=== PATIENT | male | born 1950 | race Caucasian/White ===

== ENCOUNTER → 2017-01-28 | Day surgery (SDC) | payer OTHER ==
[~2017-01-28] VITALS: Ht 177.8 cm; Wt 73.1 kg
[2017-01-28] VITALS (8 sets, daily range): BP systolic 99–125; BP diastolic 59–73; PULSE 60–70; RESP 13–18; O2SAT 95–99
[~2017-01-28] MED LIST: ASPI325T32 PO; Atropine 0.4 mg/mL Inj IVPUSH PRN; Belladonna Alk-Opium 60 mg Rectal Suppository RECTAL ONE; Dexamethasone 4 mg/mL Inj ONE; ENOX40DI8 SUBQ; EPHEDrine Sulfate 50 mg/mL Inj IVPUSH PRN; EPHEDrine/NS 5 mg/mL 5 mL Syringe ONE; Gentamicin 40 mg/mL 2 mL Inj IRRIGATION ONE; Glycopyrrolate 0.2 mg/mL 5 mL Inj ONE; HYDR-4003 PO; HYDROcodone-APAP 5-325 mg Tablet PO PRN; HYDROmorphone 1 mg/mL Inj IVPUSH PRN; Labetalol 5 mg/mL 4 mL Inj IV PRN; Lactated Ringer's 1,000 ML IV SCH; Lactated Ringer's 500 ML IV PRN; MetoCLOpramide 5 mg/mL 2 mL Inj IVPUSH PRN; Ondansetron 2 mg/mL 2 mL Inj IVPUSH PRN; Ondansetron 2 mg/mL 2 mL Inj ONE; Ondansetron 8 mg ODT Tablet PO PRN; PRAV40TA PO; Phenazopyridine 97.5 mg Tablet PO PRN; Phenylephrine 10,000 mCg/mL Inj IVPUSH PRN; Propofol 10,000 mCg/mL 20 mL Inj ONE; TAMS0.4C98 PO; fentaNYL-PF 50 mCg/mL 2 mL Inj IVPUSH PRN; fentaNYL-PF 50 mCg/mL 2 mL Inj ONE; hydrALAZINE 20 mg/mL Inj IVPUSH PRN; levoFLOXacin 500 mg/100 mL D5W Premix IV ONE
[2017-01-28] MEDS: Lactated Ringer's 1,000 ML IV SCH ×3 (06:08→12:57)
[2017-01-28] MEDS: Levofloxacin 500 mg/100 mL D5W IV ONE ×2 (10:20→10:28)
--- NOTE | 2017-01-28 10:20 | PCM.HPANE ---
Patient Data Surgeon Admitting Provider: Attending Provider:Pricilla Corrales MD Primary Care Physician:Jad Currie DO Other Provider: Reason for Visit Urinary Retention, Bph With Obstruction Ht/WT & BMI Height (Feet): 5 Height (Inches): 10 Weight (Kilograms): 74.84 Body Mass Index 23.00 Allergies Coded Allergies: meperidine (Unverified Allergy, Unknown, 11/03/16) PRESERVITIVE FREE FORMULATION Past Anesthesia History Anesthesia History: Denies:: Anesthesia Reactions Diabetes History Hx Diabetes?: No MRSA MRSA: No Medications Hypertension Medication: No Home Meds Incl Beta Alicja: No Active Scripts Aspirin 325 Mg [id number] Mg PO BID DVT prophylaxis #1 BOTTLE ASA 325 mg EC by mouth twice a day 3 weeks after Lovenox dosing is finished Prov:Doug Ellison PA-C 11/08/16 Enoxaparin Sodium 40 Mg/0.4 Ml [id number] Mg SUBQ Q24 DVT prophylaxis #11 SYR Prov:Doug Ellison PA-C 11/08/16 Hydrocodone-Acetaminophen 5-325 mg 1 Each Tablet1-2 Tablet PO Q4-6H PRN For Moderate Pain #60 TABLET Prov:Doug Ellison PA-C 11/08/16 Tamsulosin (Flomax)0.4 Mg Capsule0.4 Mg PO DAILY urinary retention #30 CAPSULE Prov:Doug Ellison PA-C 11/08/16 Reported Medications Pravastatin 40 Mg [id number] Mg PO DAILY Ref 0 11/03/16 History History of ENT Problems?: No Hx of Heart Problems?: Yes Cardiovascular History: Positive for:: Heart Murmur (faint murmur heard, assymptomatic) Denies:: Hypertension (hyperlipidemia) Hx of Respiratory Problem?: No Respiratory History: Denies:: Oxygen Administration Use of C-PAP Machine Hx Neurologic Problems?: No Neurological History: Denies:: CVA Multiple Sclerosis Parkinson's Disease Hx of GI Problems?: No Hx of Problems?: Yes Genitourinary History: Positive for:: Urinary Tract Infection Male Hx: Positive for:: Prostate Problems Skin History: Denies:: History Skin Disorders? Pressure Ulcers Hx Musculoskeletal Problems?: Yes Musculoskeletal History: Positive for:: Degenerative Joint Hx of Psycho/Social Problems?: No Hx Surgeries?: Yes (r knee) Hx Any Other Health Problems?: Yes Other History: Denies:: Cancer Thyroid Disease History Blood Transfusions: Denies:: Blood Transfusions Hx Diabetes: No Hx Alcohol Use: YesHx Substance Use: No Smoking Status: Former Smoker Have You Smoked inLast 12 mo: Yes Stop/Bang S-Snoring: Do You Snore Loudly: No T-Tired: feel tired, fatigued: No O-Obsered: Observed not breath: No P-Blood Pressure: treated: No B- Body Mass Index > 35 kg/m2: No A- Age over 50: Yes N- Neck Large Circumference: No G- Gender Male: Yes NANCY Total Score: 2 NANCY Risk Assessment: Low Risk, <3 Yes Risk Assessment Category Category 1A: Patient has history of documented sleep apnea, and HAS NOT received any narcotic, sedative or anesthesia administration during this stay. Category 1B: Patient has history of documented sleep apnea, and HAS received any narcotic , sedative or anesthesia administration during this stay Category 2: Patient has SUSPECTED Obstructive Sleep Apnea, and HAS received any narcotic , sedative or anesthesia administration during this stay. Category 3: Patient has SUSPECTED Obstructive Sleep Apnea and HAS NOT received narcotic, sedative or anesthesia administration during this stay. Category 4: Outpatient in Procedural Areas with known sleep apnea or who screen positive for High Risk via the STOP/BANG questionnaire. Exam Exam General Appearance: Alert, Oriented X3, Cooperative, No Acute Distress HEENT/AIRWAY: MP 2, Other (edentulous) Lungs: Clear to Auscultation, Normal Air Movement Heart: Exam Unremarkable, Regular Rate/Rhythm, No Murmurs/Rubs/Gallops Meds/Labs/Diagnostics Admission Meds Current Medications Lactated Ringer's (Lr) 1,000 ml @ 120 mls/hr Q8H20M IV Last administered on t 06:08; Start 01/28/17 at 05:00; Stop 01/28/17 at 13:19 Plan Impression Patient chart reviewed, patient interviewed and anesthestic plan with risks, benefits, and alternatives discussed, and informed consent obtained. NPO Status: 11/04@1999 ASA Physical Status: ASA2 Mod Systemic Disease Anesthetic Plan: GA Bene/Risks/Altern/Consents: Yes HP Complete Prior to Induction: Yes Kishor Crooks MD Jan 28, 2017 09:36
--- NOTE | 2017-01-28 12:46 | PCM.ANEP1 ---
Post Anesthesia Phase 1 PACU Phase 1 Assessment Vital Signs Vital Signs Date Time Temp Pulse Resp B/P Pulse Ox O2 Delivery O2 Flow Rate FiO2 01/28/17 12:30 64 13 107/73 95 Room Air 01/28/17 12:15 63 17 102/63 96 Simple Mask 10 01/28/17 12:10 65 13 101/64 96 Simple Mask 10 01/28/17 12:05 62 14 99/63 97 Simple Mask 10 01/28/17 12:00 36.6 65 17 102/59 99 Simple Mask 10 01/28/17 09:37 36.4 61 18 125/72 98 Room Air Anesthetic Administered: GA Level of Alertness: Awake, talking JONES's with Equal Strength: Yes Pain: No Nausea or Vomiting: No Oxygen Delivery: Simple Mask Lungs: Clear to Auscultation, Normal Air Movement Kishor Crooks MD Jan 28, 2017 12:46
--- NOTE | 2017-01-28 12:46 | PCM.ANEP2 ---
Post Anesthesia Evaluation ASA/CMS Post Anesthesia VS in Patient's Normal Range?: Yes Resp Stable; Airway Patent?: Yes CV Function & Hydration Stable: Yes Mental Status Recovered?: Yes Pain control Satisfactory?: Yes N/V Control Satisfactory?: Yes Kishor Crooks MD Jan 28, 2017 12:46
--- NOTE | 2017-01-29 10:01 | OP ---
[address] [address] OPERATIVE REPORT PATIENT: DEBRA AVERY : 1950 MR#: [id number] ADMIT: 01/28/2017 JOB ID: [id number] DATE OF SURGERY: 01/28/2017 PROCEDURE NAME: 1. Transurethral resection of prostate. 2. Cystolitholapaxy of two small bladder stones of 0.5 cm apiece. SURGEON: Pricilla Corrales MD. ANESTHESIA: General. PREOPERATIVE DIAGNOSIS(ES): 1. Urinary retention. 2. Bladder trabeculation. 3. Small bladder stones. 4. Benign prostatic hypertrophy. POSTOPERATIVE DIAGNOSIS(ES): 1. Urinary retention. 2. Bladder trabeculation. 3. Small bladder stones. 4. Benign prostatic hypertrophy. INDICATIONS: The patient is a 66-year-old gentleman with a history of likely untreated BPH presenting after a total knee operation in October 2016, with complete urinary retention. Evaluated in Urology Clinic. Failed numerous voiding trials despite aggressive medical management, and cystoscopy revealed a large median lobe. There was a moderate trabeculation and diverticula. Also, two small bladder stones. The patient transitioned at some point to intermittent catheterization. Continued to only void small amounts, and was counseled about options and wished to proceed with TURP as his best chance for once again voiding spontaneously on his own. PROCEDURE IN DETAIL: After appropriate informed consent was obtained, patient was brought to the operating room. He received IV antibiotics prior to onset of procedure. He had been treated with Cipro for culture-proven urinary tract infection. His preop culture was completely clear. He was given Levaquin prior to onset of the procedure. SCDs were placed. Adequate general anesthesia was induced. He was carefully placed in the dorsal lithotomy position. All pressure points carefully padded. Cleaned, prepped, and draped usual sterile fashion. Rigid scope was introduced in the patient's bladder, which was again surveyed and found to be as noted before. The two small bladder stones were grasped, broken into slightly smaller pieces and removed or irrigated out. We then turned our attention to the TURP. We introduced the 27-Russian sheath resectoscope and used the Moerae MatrixerVenturepaxat generator for bipolar ablative procedure. We initially started out with the cutting loop and resected to begin to open up and take down in particular the median lobe. Care was taken to avoid the ureteral orifices and also not to go beyond the level of the distal portion of the verumontanum to spare the patient's urinary sphincter. Hemostasis was controlled with electrocautery. Once we had taken down a reasonable amount of tissue, we switched over to the button application and then again, in quadrants, cleaned out the prostate. On termination of the procedure, hemostasis was excellent, and we were able to see very well from the verumontanum to the patient's bladder with a large median lobe/bladder portion removed, was irrigated out copiously. We also irrigated out with 2 L of gentamicin solution and then placed a 22-Russian two-way catheter. Return was completely clear to light pink. Chips were handed off for permanent pathology. The bladder stone was not sent for stone analysis. The patient tolerated this well, was awakened, and taken in a stable condition to the postanesthesia care unit. Plans will be to home with the two-way Brown catheter to gravity drainage for at least one week.
--- NOTE | 2017-01-30 11:27 | PATH ---
SURGICAL PATHOLOGY Attending Physician:Pricilla Corrales MD CASE STATUS: Signed Out PATIENT NAME: DEBRA AVERY PID: [id number] : 1950 DATE COLLECTED:01/28/2017 20:34 SPECIMEN: Prostate, Chips CLINICAL HISTORY: URINARY RETENTION BPH WITH OBSTRUCTION 1). PROSTATE CHIPS FINAL DIAGNOSIS: 1.PROSTATE, TUR FRAGMENTS: PROSTATIC ADENOCARCINOMA SPECIMEN SIZE: 2.8 GRAMS. HISTOLOGIC TYPE: ADENOCARCINOMA (ACINAR, NOT OTHERWISE SPECIFIED). HISTOLOGIC GRADE: EDDY PRIMARY PATTERN: 3 SECONDARY PATTERN: 3 TOTAL EDDY SCORE: 3 + 3 = 6/10 GRADE GROUP 2. TUMOR QUANTITATION: PERCENTAGE OF PROSTATIC TISSUE INVOLVED BY TUMOR: 15%. ADDITIONAL PATHOLOGIC FINDINGS: NODULAR PROSTATIC HYPERPLASIA. ICD10 code C61 NOTE: Accurate grading is limited by marked cautery artifact in the tumor, but it appears to be all [place] pattern 3. As part of a routine director quality systems, Dr. Mateus Orr has also reviewed this case and agrees with the diagnosis. The finding of prostatic adenocarcinoma was reported to Dr. Antoni Cerna' s nurse, by telephone on 01/30/[address] Bolden. GROSS DESCRIPTION: The specimen is received in one formalin filled container labeled with the patient's name, sublabeled "prostate chips" and consists of multiple portions of tissue which aggregate to 4.5 x 2.5 x 0.5 CM. The specimen weighs 2.8 g in total. The specimen is entirely submitted in 4 cassettes. 01/28/2017 [facility] MICRO DESCRIPTION: See diagnosis. ICD-9 CODES: CPT CODES: 1: 51190 Electronically Signed Out Carolann Bolden MD [facility] Pathology [facility] [address], [place] [address] Technical component performed at [employer], [address] [place] [address] Ave[address], [place], [address]
== END | disposition home or self-care (01) ==
LOC: SAS 08:21
PROVIDERS: ATTEND Urology
DX: C61 Malignant neoplasm of prostate (principal); N40.1 Benign prostatic hyperplasia with lower urinary tract symptoms; R33.9 Retention of urine, unspecified; N21.0 Calculus in bladder; E78.5 Hyperlipidemia, unspecified; Z87.891 Personal history of nicotine dependence; Z79.82 Long term (current) use of aspirin
CPT/HCPCS: 36415; 52317; 52601; 80048; J1100; J1580; J2405; J3010; J7120